=== PATIENT | male | born 1995 | race Caucasian/White ===

== ENCOUNTER 2020-10-29 12:21 | Emergency (ER) | payer OTHER ==
[~2020-10-29] VITALS: Ht 170.2 cm; Wt 70.3 kg
[2020-10-29 12:32] VITALS: BP 123/79
[2020-10-29] MEDS ORDERED: ULTRAM 50MG TAB50 MG PO (12:51)
[2020-10-29] MEDS ORDERED: DOXYCYCLINE 10100 MG PO (12:54)
== END 2020-10-29 12:55 | disposition home or self-care (01) ==
LOC: ER 12:21
DX: L02.415 Cutaneous abscess of right lower limb (principal)